=== PATIENT | female | born 1970 | race Two or more races ===

== ENCOUNTER 2018-02-14 22:57 | Emergency (ER) | payer BC ==
[~2018-02-14] VITALS: Ht 172.7 cm; Wt 63.5 kg
--- NOTE | 2018-02-14 23:00 | NUR ---
DR TONA YAN MD AT BEDSIDE FOR MSE.
[2018-02-14] MEDS ORDERED: EPINEPHRINE 1:1000 30 MG/30 ML VIAL ONE (23:06)
[2018-02-14] MEDS ORDERED: EPINEPHRINE 1:10,000 1 MG/10 ML DISP.SYRIN ONE (23:07)
[2018-02-14] MEDS ORDERED: EPINEPHRINE 1 MG/1 ML AMP ONE (23:09)
--- NOTE | 2018-02-14 23:10 | NUR ---
Pt stated she was eating at a restaurant across the street when she accidentally ate shrimp, which she is allergic to. Pt brought in by , who says he is a physician. Pt placed on monitor, and pulse ox.
[2018-02-14] MEDS ORDERED: diphenhydrAMINE 50 MG/1 ML VIAL ONE (23:14)
[2018-02-14] MEDS ORDERED: methylPREDNISolone SOD SUCC 125 MG/2 ML VIAL ONE (23:14)
[2018-02-14] MEDS ORDERED: FAMOTIDINE. 20 MG/2 ML VIAL IV ONE ×2 (23:15)
[2018-02-14] MEDS ORDERED: diphenhydrAMINE 50 MG/1 ML VIAL IV ONE (23:15)
[2018-02-14] MEDS ORDERED: EPINEPHRINE 1 MG/1 ML AMP SQ ONE (23:15)
[2018-02-14] MEDS ORDERED: methylPREDNISolone SOD SUCC 125 MG/2 ML VIAL IV ONE (23:15)
--- NOTE | 2018-02-15 01:01 | NUR ---
Patient discharged to home in stable conditon. Written and verbal after care instructions given. Patient verbalizes understanding of instructions. Pt denies SOB or respiratory distress, or N/V. Ambulates from ER w/ steady gait, to be picked up by [facility]. IV removed, w/ catheter intact. Pressure applied, no bleeding noted at site.
[2018-02-15 01:11] VITALS: BP 122/74
== END 2018-02-15 01:12 | disposition home or self-care (01) ==
LOC: ER 22:57
DX: T78.40XA Allergy, unspecified, initial encounter (principal)
CPT/HCPCS: A4663; J0171; J1200; J2930; J3490

== ENCOUNTER 2018-08-31 19:56 | Emergency (ER) | payer BC ==
[~2018-08-31] VITALS: Ht 165.1 cm; Wt 64.0 kg
[2018-08-31] MEDS ORDERED: MELOXICAM 15 MG TABLET PO (20:07)
[2018-08-31] MEDS ORDERED: ACET-2605 PO (20:07)
--- NOTE | 2018-08-31 20:16 | NUR ---
PT AMBULATES TO ER WITH WITH C/O FEVER, HEADACHE, BODY ACHE X 2 DAYS. PT AAOX4. PT DENIES CHEST PAIN/SOB. NO COUGH NOTED. RESPIRATIONS EVEN + UNLABORED.
[2018-08-31] MEDS ORDERED: IV D5/ 0.9% NACL 1,000 ML IV ONE (20:19)
[2018-08-31] MEDS ORDERED: KETOROLAC TROMETHAMINE 30 MG INJ IVP ONE (20:30)
[2018-08-31 20:39] LABS: BASOPHILS % (AUTO) 0.3 % (0.0-2.0); EOSINOPHILS % (AUTO) 0.4 % (0.0-7.0); HEMATOCRIT 35.9 % (31.2-41.9); HEMOGLOBIN 12.3 g/dL (10.9-14.3); MEAN CORPUSCULAR HEMOGLOBIN 30.7 uug (24.7-32.8); MEAN CORPUSCULAR HGB CONC 34 g/dL (32.3-35.6); MONOCYTES # (AUTO) 0.6 K/uL (2.0-10.0); MONOCYTES % (AUTO) 7.4 % (0.0-11.0); NEUTROPHILS # (AUTO) 6.4 K/uL (1.8-8.9); NEUTROPHILS % (AUTO) 79.9 % (38.5-71.5); PLATELET COUNT (AUTO) 140 K/uL (179-408); RED BLOOD CELL COUNT(AUTO) 3.99 MIL/uL (3.63-4.92)
[2018-08-31 20:46] LABS: *BILIRUBIN,URIN 1+ (NEGATIVE); *BLOOD, URINE NEGATIVE (NEGATIVE); *COLOR,URINE AMBER (YELLOW); *KETONES,URINE TRACE (NEGATIVE); *PROTEIN,URINE 1+ (NEGATIVE); LEUKOCYTE ESTERASE ,URINE TRACE (NEGATIVE); NITRITE, URINE POSITIVE (NEGATIVE); UGLUCOSE NEGATIVE (NEGATIVE)
[2018-08-31 20:47] LABS: CREATININE 0.7 mg/dL (0.6-1.3); POTASSIUM 3.6 mmol/L (3.5-5.1)
[2018-08-31 20:51] LABS: *URINE HCG, QUAL NEGATIVE (NEGATIVE)
[2018-08-31 20:53] LABS: BILIRUBIN,TOTAL 0.8 mg/dL (0.2-1.0); TOTAL PROTEIN, SERUM 6.6 g/dL (6.4-8.2)
[2018-08-31 20:55] LABS: *CLARITY,URINE HAZY (CLEAR)
[2018-08-31 20:57] LABS: BACTERIA,URINE MODERATE /HPF (NONE SEEN); MUCUS,URINE MANY /LPF (0-FEW); RBC,URINE 0-3 /HPF (0-3); SQUAMOUS EPITHELIAL CELL,UR MODERATE /HPF (NONE SEEN); YEAST,URINE FEW /HPF (NONE SEEN)
--- NOTE | 2018-08-31 21:02 | NUR ---
XRAY AT BEDSIDE.
[2018-08-31] MEDS ORDERED: CEFTRIAXONE 1 G VIAL ONE (21:05)
[2018-08-31] MEDS ORDERED: NITROFURANTOIN/NITROFURAN MAC 100 MG CAPSULE ONE (21:10)
[2018-08-31] MEDS ORDERED: NITROFURANTOIN/NITROFURAN MAC 100 MG CAPSULE PO ONE (21:15)
[2018-08-31] MEDS ORDERED: CEFTRIAXONE 1 G in IV DEXTROSE 5% 50 ML IV ONE (21:15)
--- NOTE | 2018-08-31 21:31 | NUR ---
IV removed. Catheter intact and site benign. Pressure and 4x4 gauze applied to site. No bleeding noted.
--- NOTE | 2018-08-31 21:32 | NUR ---
Patient discharged to home in stable conditon. Written and verbal after care instructions given. Patient verbalizes understanding of instructions. Pt ambulated out of ER in steady gait with . All belongings with pt. VSS. NAD noted.
[2018-08-31 21:33] VITALS: BP 114/66
== END 2018-08-31 21:34 | disposition home or self-care (01) ==
LOC: ER 19:57
DX: N12 Tubulo-interstitial nephritis, not specified as acute or chronic (principal); R51 Headache; R50.9 Fever, unspecified; M54.2 Cervicalgia
CPT/HCPCS: 36415; 71045; 80053; 81001; 84703; 85025; 87040 ×2; 87086; 96365; 99285; J0696; J7042; A4663